=== PATIENT | female | born 1990 | race Caucasian/White ===

== ENCOUNTER 2019-04-25 13:18 | Emergency (ER) | payer MEDICAID ==
[~2019-04-25] VITALS: Ht 152.4 cm; Wt 54.5 kg
[2019-04-25] MEDS ORDERED: ringers solution, lactated 1000ml IV soln IV ONE (13:45)
[2019-04-25] MEDS ORDERED: ondansetron/PF 4mg/2ml inj IV ONE ×2 (13:45→14:50)
[2019-04-25 14:37] LABS: URINE HCG NEGATIVE (NEG)
[2019-04-25 14:38] LABS: BASOPHILS % (AUTO) 0.1 % (0-1); EOSINOPHILS % (AUTO) 0.1 % (0-6); HEMATOCRIT 45.5 % (35.0-45.0); HEMOGLOBIN 15.1 g/dl (12.0-16.0); LYMPHOCYTES # (AUTO) 0.9 X10'3 (1.1-4.8); LYMPHOCYTES % (AUTO) 7.3 % (21-51); MEAN CORPUSCULAR HEMOGLOBIN 30.8 PG (27.0-31.0); MEAN CORPUSCULAR HGB CONC 33.1 g/dL (33.0-36.5); MEAN PLATELET VOLUME 8.7 FL (7.4-10.4); MONOCYTES # (AUTO) 0.6 X10'3 (0-0.9); MONOCYTES % (AUTO) 4.5 % (2-12); NEUTROPHILS # (AUTO) 11.4 X10'3 (1.8-7.7); PLATELET COUNT 399 X10'3 (140-440); WHITE BLOOD COUNT 12.9 X10'3 (4.5-11.0)
[2019-04-25 14:43] LABS: ALBUMIN 4.8 G/DL (3.4-5.0); ANION GAP 23 (8-16); BLOOD UREA NITROGEN 13 MG/DL (7-18); BUN/CREATININE RATIO 13.1 (6.6-38.0); CHLORIDE 98 MMOL/L (99-107); CREATININE 0.99 MG/DL (0.40-0.90); GLUCOSE 85 MG/DL (70-104); SODIUM 139 MMOL/L (135-145); TOTAL CARBON DIOXIDE 17.6 MMOL/L (24-32); eGFR 66 ML/MIN
[2019-04-25] MEDS ORDERED: famotidine/PF 10 mg/ml inj IV ONE (14:50)
[2019-04-25] MEDS ORDERED: mag hydrox/Alum hydrox/simeth 30ml oral suspension PO ONE (14:50)
[2019-04-25] MEDS: LIDOcaine Viscous 15ml cup PO ONE ×2 (15:11→15:47)
[2019-04-25] MEDS ORDERED: dextrose 5%-normal saline 1,000 ML IV ONE ×2 (15:15→16:11)
[2019-04-25 15:24] LABS: CLARITY,URINE CLOUDY (Clear); COLOR,URINE YELLOW (Yellow); GLUCOSE, URINE NEGATIVE (Neg); KETONES,URINE >=80 mg/dl (Neg); LEUKOCYTE ESTERASE ,URINE NEGATIVE (Neg); NITRITES, URINE NEGATIVE (Neg); OCCULT BLOOD,URINE MODERATE (Neg); PROTEIN,URINE 30 mg/dl (Neg); UROBILINOGEN,URINE 0.2 E.U/dL (0.2-1.0)
[2019-04-25 15:26] LABS: UA COLLECTION TYPE CLN CATCH MIDSTREAM
[2019-04-25 15:34] LABS: BACTERIA,URINE FEW /HPF (Neg); HYALINE CASTS 0-3 /LPF (NEGATIVE); SQUAMOUS EPITHELIAL CELL,UR MANY /LPF (FEW)
[2019-04-25 15:35] LABS: CAL OXALATE CRYSTALS 1+ /HPF (NEGATIVE)
[2019-04-25 15:36] LABS: RBC,URINE 0-2 /HPF (0-2); WBC,URINE 0-4 /HPF (0-4)
[2019-04-25] MEDS ORDERED: ONDA4TAB12 PO (15:51)
--- NOTE | 2019-04-25 16:24 | NUR ---
AWAITING TO FINISH IV FLUID.
[2019-04-25 16:39] VITALS: BP 105/66
== END 2019-04-25 16:41 | disposition home or self-care (01) ==
LOC: ER 13:20
DX: R11.10 Vomiting, unspecified (principal); E88.89 Other specified metabolic disorders; R10.33 Periumbilical pain; R10.84 Generalized abdominal pain; F12.90 Cannabis use, unspecified, uncomplicated
CPT/HCPCS: 36415; 80048; 81001; 81025; 85025; 96361; 96374; 96375; 96376; 99284; J2405; J3490; J7030; J7042; J7120